=== PATIENT | female | born 1965 | race Caucasian/White ===

== ENCOUNTER 2018-08-26 17:39 | Emergency (ER) | payer SELFPAY ==
[~2018-08-26] VITALS: Ht 165.1 cm; Wt 54.7 kg
[2018-08-26 17:47] VITALS: BP 128/59; PULSE 92; RESP 18; Ht 165.1 cm; Wt 54.7 kg
== END 2018-08-26 18:33 | disposition left against medical advice (07) ==
LOC: E/R 17:39
DX: Z53.21 Procedure and treatment not carried out due to patient leaving prior to being seen by health care provider (principal)